=== PATIENT | female | born 1970 | race Caucasian/White ===

== ENCOUNTER 2017-05-18 09:18 | Day surgery (SDC) | payer BC, OTHER ==
[~2017-05-18 09:18] MED LIST: ACETAMINOPHEN 1,000 MG/100 ML BTL IV ONE; CEFAZOLIN 2 Gram 2 GM/50 ML BAG IVPB ONE; FAMOTIDINE 20MG TABLET PO ONE; MECLIZINE 25 MG TABLET PO ONE; METOCLOPRAMIDE 10 MG TABLET PO ONE
[2017-05-18] MEDS ORDERED: SEVOFLURANE 250 ML INH ONE (09:19)
[2017-05-18] MEDS ORDERED: METHYLPREDNISOLONE 40MG/VIAL IM ONE (09:19)
[2017-05-18] MEDS ORDERED: LIDOCAINE 2% MDV (20MG/ML) 20ML VIAL IV ONE (09:19)
[2017-05-18] MEDS ORDERED: KETOROLAC 30 MG/ML VIAL IVP ONE (09:19)
[2017-05-18] MEDS ORDERED: MORPHINE SULFATE 5 MG/ML PFS IVP ONE (09:19)
[2017-05-18] MEDS ORDERED: BUPIVACAINE 0.75% W/EPI MPF 30ML VIAL IVP ONE (09:19)
[2017-05-18] MEDS ORDERED: PROPOFOL 10 MG/ML VIAL IV ONE (09:19)
--- NOTE | 2017-05-19 06:24 | Operative Note ---
DATE: 05/18/2016. PREOPERATIVE DIAGNOSIS: INTERNAL DERANGEMENT OF THE LEFT KNEE. POSTOPERATIVE DIAGNOSES: 1. GRADE 3 CHONDROMALACIA OF THE PATELLA. 2. GRADE 3 CHONDROMALACIA OF THE MEDIAL FEMORAL CONDYLE. 3. COMPLEX SPLIT TEAR INVOLVING THE POSTERIOR HORN OF THE MEDIAL MENISCUS. 4. MODERATE SYNOVITIS OF THE LEFT KNEE. PROCEDURES: 1. Left knee arthroscopy with partial medial meniscectomy. 2. Left knee arthroscopy with limited synovectomy. 3. Left knee arthroscopy with chondroplasty in the medial patellofemoral compartments. STAFF SURGEON: Tavo Clements M.D. ANESTHESIA: General. PREPARATION: ChloraPrep. INDIVIDUAL CONSIDERATIONS: None. PROCEDURE: The patient was taken to the operating room and placed supine on the operating table. She had successful induction of a general anesthetic. Her left lower extremity was prepped and draped in the usual fashion. The patient had a superolateral inflow cannula placed. The skin had been infiltrated with 0.75% Marcaine with epinephrine prior. A clear effusion was drained, and the knee was inflated with normal saline. An inferomedial and an inferolateral portal were made in a similar fashion. The arthroscope was introduced through the inferolateral portal up into the pouch. The patellofemoral compartment had grade 3 changes throughout the patella, especially laterally. This was smoothed off with a shaver. Moderate synovitis was seen in the pouch. This was debrided; not as much in the gutters. Medially she had a grade 3 chondromalacia with peeling cartilage, but luckily down to the bone, from about 40 to 90 degrees of flexion just lateral to the midline and the femoral condyle. This was smoothed off with a shaver. Obviously, she had a split tear involving the posterior horn of the medial meniscus. This was debrided back, and this was basically removed with basket forceps and a shaver. The medial and anterior horns were intact. The notch and the cruciates were normal. The lateral compartment structures were essentially normal. The knee was then thoroughly irrigated out with saline to remove floating debris. The portals were closed with michelle, and 20 mL of 0.25% plain Marcaine along with 4.0 mg of morphine and 40 mg of Depo Medrol were injected into the knee. A sterile bulky compressive dressing was applied. The patient tolerated the procedure well. Needle and sponge counts were correct. Estimated blood loss was minimal. She was taken back to the recovery room in good condition. There were no complications. Job Number: [id number] [facility]
== END 2017-05-18 14:10 | disposition home or self-care (01) ==
LOC: SUR 09:18
PROVIDERS: ATTEND Orthopaedic Surgery
DX: M23.222 Derangement of posterior horn of medial meniscus due to old tear or injury, left knee (principal); M22.42 Chondromalacia patellae, left knee; M65.862 Other synovitis and tenosynovitis, left lower leg; F32.9 Major depressive disorder, single episode, unspecified
CPT/HCPCS: 29881; 01400; J1885; J0690; J2270; J3490; J1030